=== PATIENT | female | born 1975 | race Caucasian/White ===

== ENCOUNTER → 2017-08-24 | Outpatient (REF) | payer OTHER ==
[2017-08-24 15:19] LABS: CHLAMYDIA DNA AMPLIFICATION NEGATIVE (NEGATIVE); GC DNA AMPLIFICATION NEGATIVE (NEGATIVE)
== END ==
LOC: M SFHCLERA 10:08
DX: R53.81 Other malaise (principal)

== ENCOUNTER → 2018-02-24 | Outpatient (CLI) | payer OTHER ==
--- NOTE | 2018-02-24 12:34 | REPMRS ---
Patient History The patient states she had a clinical breast exam in 2017. Family history of stomach cancer at age 47 in mother, ovarian cancer at age 90 in paternal grandmother. Digital Mammo Screening Bilat: February 24, 2018 - Exam #: [id number] Bilateral CC and MLO view(s) were taken. Technologist: Catherine Pisano, Technologist Prior study comparison: November 12, 2015, bilateral digital woman screen mammo, performed at [facility]. FINDINGS: The breast tissue is heterogeneously dense. This may lower the sensitivity of mammography. There is a moderate amount of heterogeneously dense fibroglandular tissue which is fairly symmetric. There is no interval development of dominant mass, architectural distortion, or clustered microcalcification typical of malignancy. There has been no change in the appearance of the mammogram from the prior studies. 3-D tomosynthesis shows no additional findings. Assessment: BI-RADS/ACR category 1 mammogram. Negative. Recommendation Routine screening mammogram of both breasts in 1 year (for women over age 40). This patient's Lifetime Breast Cancer RIsk is estimated at 9.2 %. This mammogram was interpreted with the aid of an FDA-approved computer-aided dectection system. Electronically Signed By: Toan Watters MD 02/24/18 [id number]
== END ==
LOC: M RAD 09:19
PROVIDERS: ATTEND Family Medicine
DX: Z12.31 Encounter for screening mammogram for malignant neoplasm of breast (principal)

== ENCOUNTER 2018-05-04 05:48 | Inpatient (IN) | payer OTHER ==
[2018-05-04] VITALS (8 sets, daily range): BP systolic 126–149; BP diastolic 77–93
[~2018-05-04] VITALS: Ht 157.5 cm; Wt 68.5 kg
[~2018-05-04 05:48] MED LIST: CELE20TA PO; IBUP1TAB7 PO
[2018-05-04] MEDS ORDERED: LIDOCAINE 1% MDV 20ML VIAL SQ PRN (06:00)
[2018-05-04 06:12] LABS: HEMATOCRIT 37.1 % (36.0-47.0); HEMOGLOBIN 11.9 g/dl (12.0-15.5); MEAN CORPUSCULAR HEMOGLOBIN 29.4 pg (27.0-33.0); MEAN CORPUSCULAR HGB CONC 32.1 g/dl (32.0-36.5); MEAN CORPUSCULAR VOLUME 91.6 fl (80.0-96.0); PLATELET COUNT, AUTOMATED 249 10^3/uL (150-450); RED BLOOD COUNT 4.05 10^6/uL (4.00-5.40); WHITE BLOOD COUNT 5.8 10^3/uL (4.0-10.0)
[2018-05-04 06:39] LABS: HCG, SERUM QUALITATIVE NEGATIVE (NEGATIVE)
[2018-05-04] MEDS ORDERED: LR 1,000 ML IV ONE (07:00)
[2018-05-04] MEDS ORDERED: BUPIVACAINE HCL 0.25% 30 ML VIAL As Ordered ONE (07:09)
[2018-05-04] MEDS ORDERED: HYDROmorphone HCL 2 MG/ML 1ML VIAL (J1170) As Ordered ONE (07:55)
[2018-05-04] MEDS ORDERED: dexameTHASONE 4 MG/ML 1ML VIAL (J1100) As Ordered ONE (07:55)
[2018-05-04] MEDS ORDERED: fentaNYL 100 MCG/2 ML INJECTION (J3010) As Ordered ONE (07:55)
[2018-05-04] MEDS ORDERED: LIDOCAINE 2% INJ 100 MG/5 ML SDV (FOR ANES.) As Ordered ONE (07:55)
[2018-05-04] MEDS ORDERED: PROPOFOL 200 MG/20 ML VIAL As Ordered ONE (07:56)
[2018-05-04] MEDS ORDERED: ROCURONIUM BROMIDE 50 MG/5 ML VIAL As Ordered ONE (07:56)
[2018-05-04] MEDS ORDERED: MIDAZOLAM INJ 2 MG/2 ML VIAL (J2250) As Ordered ONE (07:56)
[2018-05-04] MEDS ORDERED: ONDANSETRON 4MG/2ML VIAL (J2405) As Ordered ONE (07:56)
[2018-05-04] MEDS ORDERED: KETOROLAC 60 MG/2 ML VIAL (J1885) As Ordered ONE (09:23)
[2018-05-04] MEDS ORDERED: NEOSTIGMINE 10 MG/10 ML VIAL (J2710) As Ordered ONE (09:24)
[2018-05-04] MEDS ORDERED: GLYCOPYRROLATE INJ 0.2 MG/ML 2 ML VIAL As Ordered ONE (09:24)
[2018-05-04] MEDS ORDERED: DESFLURANE 240 ML INHALANT As Ordered ONE (09:30)
[2018-05-04] MEDS ORDERED: LIDOCAINE W/EPINEPHRINE 1% 20ML VIAL As Ordered ONE (09:45)
[2018-05-04] MEDS ORDERED: FLUORESCEIN 10% (100MG/ML) 5 ML VIAL As Ordered ONE (10:25)
[2018-05-04] MEDS ORDERED: ceFAZolin 2 GM/D5W 50 ML IV BAG (J0690 PER 500MG) As Ordered ONE (11:30)
[2018-05-04] MEDS ORDERED: LR 1,000 ML IV SCH ×2 (11:39→12:30)
[2018-05-04] MEDS ORDERED: ONDANSETRON 4MG/2ML VIAL (J2405) IV PRN ×2 (11:45→12:30)
[2018-05-04] MEDS ORDERED: PERCOCET 5MG/325MG TAB PO PRN ×3 (11:45→12:30)
[2018-05-04] MEDS ORDERED: MORPHINE 10 MG/ML 1ML VIAL (J2270) IV PRN (12:30)
[2018-05-04] MEDS ORDERED: fentaNYL 100 MCG/2 ML INJECTION (J3010) IV PRN (12:30)
--- NOTE | 2018-05-04 16:23 | IPNPDOC ---
Text Note Date of Service The patient was seen on 05/04/18. NOTE Post-op Day 0 Luz Maria is a 43yo F with severe dysmenorrhea s/p endometrial ablation in July 2016 who underwent uncomplicated LAVH, bilateral salpingectomy and cystoscopy on 05/04/18 for definitive treatment. She is doing well this afternoon. She has abdominal soreness but pain is overall well controlled. She has eaten without emesis/nausea, she is drinking water consistently. She has not yet ambulated. Has pineda catheter in place draining copious urine. No f/c/CP/SOB. Vitals wnl, afebrile General: WDWN, resting comfortably in bed Abdomen: soft, appropriately tender to palpation without rebound/guarding. 3 trocar sites intact with dermabond overlying, without erythema/drainage Extremities: SCDs on and functioning, no pain with palpation of calves Labs: pre-op H/H 11.9/37.1 Assessment: Luz Maria is a 43yo F with severe dysmenorrhea s/p endometrial ablation in July 2016 who underwent uncomplicated LAVH, bilateral salpingectomy and cystoscopy on 05/04/18 for definitive treatment, doing well on POD 0. Vitals wnl, benign exam. Hemodynamically stable with no e/o infection. Plan: -Routine post-op care -Vitals q4hr -Regular diet -Discontinue IVF when reliably tolerating PO intake well -CBC in the am -Keep pineda catheter in until 0700 tomorrow morning -K pad ordered for comfort -Encourage ambulation and use of IS -Anticipate discharge home tomorrow if meeting all milestones Dr. Bettina Rodriguez MD VS,Luna, I+O VSLuna, I+O Laboratory Tests 05/04/18 05:57 Red Blood Count 4.05, Mean Corpuscular Volume 91.6, Mean Corpuscular Hemoglobin 29.4, Mean Corpuscular Hemoglobin Concent 32.1, Red Cell Distribution Width 12.9 Vital Signs Date Time Temp Pulse Resp B/P (MAP) Pulse Ox O2 Delivery O2 Flow Rate FiO2 05/04/18 15:15 98.7 100 18 134/88 (103) 99 05/04/18 12:06 2 Bettina Rodriguez MD May 04, 2018 16:22
[2018-05-04] MEDS: KETOROLAC 30 MG/ML VIAL (J1885) IV PRN (18:20)
[2018-05-04] MEDS: DOCUSATE SODIUM 100 MG CAP PO SCH (19:59)
[2018-05-05] VITALS: BP 115/68
[2018-05-05] MEDS: KETOROLAC 30 MG/ML VIAL (J1885) IV PRN ×2 (00:21→08:25)
[2018-05-05 04:00] VITALS: BP 117/70
[2018-05-05 07:05] LABS: BASO % 0.2 % (0.0-1.0); EOS % 0.1 % (0.0-3.0); HEMATOCRIT 32.5 % (36.0-47.0); HEMOGLOBIN 10.5 g/dl (12.0-15.5); LYMPH # 2.1 10^3/uL (1.5-4.5); LYMPH % 19.6 % (24.0-44.0); MEAN CORPUSCULAR HEMOGLOBIN 29.2 pg (27.0-33.0); MEAN CORPUSCULAR HGB CONC 32.3 g/dl (32.0-36.5); MEAN CORPUSCULAR VOLUME 90.5 fl (80.0-96.0); MONO # 0.8 10^3/uL (0.0-0.8); NEUTROPHILS # 7.8 10^3/uL (1.8-7.7); NEUTROPHILS % 72.6 % (36.0-66.0); PLATELET COUNT, AUTOMATED 249 10^3/uL (150-450); RED BLOOD COUNT 3.59 10^6/uL (4.00-5.40); WHITE BLOOD COUNT 10.8 10^3/uL (4.0-10.0)
[2018-05-05 08:00] VITALS: BP 115/70
[2018-05-05] MEDS: DOCUSATE SODIUM 100 MG CAP PO SCH (08:24)
--- NOTE | 2018-05-05 08:45 | RO ---
DATE OF PROCEDURE: 05/04/2018 PREPROCEDURE DIAGNOSIS: In severe dysmenorrhea status post endometrial lesion. POSTPROCEDURE DIAGNOSIS: In severe dysmenorrhea status post endometrial lesion. POSTPROCEDURE DIAGNOSIS: SURGEON: Bettina Rodriguez MD PLASTICS FACTORY WORKER: Pascual Chairez MD CLINICAL SERVICE: Gynecology. INDICATIONS FOR OPERATION: Luz Maria is a 42-year-old G5, P 4-0-1-4 who has been experiencing severe dysmenorrhea after having an endometrial ablation by another physician in July 2016. The pain of her periods was extremely significant despite the fact that her bleeding was very minimal. She had an ultrasound that showed evidence of probable adenomyosis and after counseling desired definitive management with hysterectomy. MATERIAL FORWARDED TO LAB FOR EXAMINATION: Uterus, cervix and bilateral fallopian tubes. DESCRIPTION OF FINDINGS: The uterus was enlarged and boggy in appearance. The ovaries, fallopian tubes, liver edge all had normal appearance. There was hemostasis along the vaginal cuff and postoperative cystoscopy showed jets from both ostea. INFECTION CLASSIFICATION: II ESTIMATED BLOOD LOSS: 150 mL. IV FLUIDS: 1900 mL URINE OUTPUT: 200 mL OPERATION PERFORMED: Laparoscopic-assisted vaginal hysterectomy with bilateral salpingectomy and cystoscopy. DESCRIPTION OF OPERATION: The patient was taken to the operating room. Bilateral sequential compression device (SCD) were placed. General endotracheal anesthesia was utilized. She was prepped and draped in normal sterile fashion in low lithotomy position. Time-out was performed to confirm patient name, date of , procedure and indication, the team was in agreement. A De Leon catheter was placed. Seabrook speculum was placed in the vagina and the anterior lip of the cervix had a [id number] suture placed using #0 Vicryl suture. The VCare uterine manipulator was then introduced. The stitch was then tied down to the uterine manipulator and the bivalve speculum was removed from the vagina. A 5 mm incision was made in the infraumbilical fold beneath the subcutaneous tissue after anesthetizing with 0.25% Marcaine. Mery clamp was used to spread the subcutaneous tissue. Lower abdominal wall was manually grabbed and lifted up and an Optiview trocar was placed at a 90 degrees angle. The laparoscope was easily advanced through the port and intra-abdominal placement was confirmed. Observation below the point of entry revealed no injury. Continuous flow of carbon dioxide began to establish pneumoperitoneum at 15 mmHg pressure. We then placed two other ports, one in the right lower quadrant and one in the left lower quadrant and anesthetizing with 0.25% Marcaine first and then directly observing the placement of the trocars. We then did a full pelvic and abdominal survey beginning at the anterior cul-de-sac, which was normal in appearance. Posterior cul-de-sac revealed a couple stringy adhesions but no significant adhesions. The liver edge was normal in appearance. The gallbladder and appendix were not visualized on exam, but otherwise all in the other pelvic structures were normal in appearance aside from the uterus being enlarged and boggy in appearance. We did observe both of the ureters vermiculating. We began with the bilateral salpingectomy, first on the left side, excising the fallopian tube, maintaining good distance between the ovary and the fallopian tube with the LigaSure and then staying just underneath the fallopian tube up to the cornu of the uterus. We did this first on the left and then on the right. Both of the right all the fallopian tubes were lifted up through the trocars and passed off to be observed by pathology. We then began the hysterectomy by transecting the left broad ligament using the LigaSure. The utero-ovarian ligament on the head was also transected using LigaSure, and the anterior leaf of the broad ligament was opened and we attempted to skeletonize the uterine arteries. This was done with the LigaSure down to the level of the internal os. At that time, we also created the left sided portion of the bladder flap using the LigaSure and traction and then repeated that whole process on the right side. We noted hemostasis. Originally we intended to perform our colpotomy laparoscopically using the right angled hook; however, we were having difficulty palpating the cup of the VCare manipulator and it felt like we were just digging into the cervix without needing the cup so we decided at that point to move to perform the colpotomy vaginally and finish the procedure vaginally. There was adequate hemostasis noted along all the pedicle lines in the pelvis. We removed all the laparoscopic instruments at that point in the abdomen and pneumoperitoneum was released; however, other trocars remained in place. We then placed the patient in high lithotomy position, short weighted speculum was placed in the vagina with good visualization of the cervix. The cervix was grasped with two Allis clamps. Cervix was injected circumferentially with 1% lidocaine with epinephrine. Posterior cervix was grasped and entered sharply with curved Myers scissors after circumscribing the cervix using Bovie cautery. Entry was noted to be in the peritoneum and at that point we tagged the posterior peritoneum and vaginal cuff with 0 Vicryl. Uterosacral ligaments were incorporated in curved Franco clamps. They were transected and suture ligated using #0 Vicryl and tagged. The weighted speculum was replaced in the posterior cul-de-sac and the cardinal ligaments were clamped on both sides, transected and suture ligated with 0 Vicryl suture. Entry was made sharply in the anterior cul-de-sac using Metzenbaum scissors. Bladder was retracted away from the opening using a right-angle retractor. The uterine arteries and remaining broad ligaments were serially clamped with Franco clamps, transected and suture ligated with #0 Vicryl suture. Hemostasis of the uterine arteries was noted bilaterally. Specimen containing cervix and uterus was delivered through the vagina and passed off to go to pathology. The vaginal cuff was then closed using #0 Vicryl suture with a uterosacral plication. I used four [id number] at the most superior aspect of the vaginal cuff closure, taking great care to avoid the bladder and then starting just underneath the last [id number] I ran the rest of the vaginal cuff down inferiorly using 0 Vicryl. The vaginal cuff had hemostasis noted that point and all instruments removed from the vagina. Cystoscopy was completed in usual fashion after first administering fluorescein dye. Bilateral ureteral jets were visualized. There was a bubble noted at the dome of the bladder and the were no defects noted. No sutures within the bladder. Cystoscope was removed from the urethra and the De Leon catheter was replaced. Attention was then paid back to the abdomen after regloving where pneumoperitoneum was reestablished. Reevaluation of the abdomen and pelvis showed adequate hemostasis along all pedicle lines. We irrigated and then applied Ashvin along the pedicle lines. There was no bleeding whatsoever. At that point, the lateral ports were removed under direct visualization, followed by the umbilical port site. We reanesthetized each of the port sites with more 0.25 percent Marcaine for long-acting pain control and then the port sites were all reapproximated using #4-0 Monocryl, two sutures each for all of the ports, undermining the skin and then Dermabond was placed on top of the skin as a barrier. Hemostasis was noted for all those incisions. The patient was taken out of high lithotomy position and all counts were correct tines two. The patient was awakened from general anesthesia and taken to the recovery room in stable condition. She was redosed 2 grams of Ancef at the end of the procedure given that the procedure took more than 3 hours so that was a total of two doses that she received.
[2018-05-05 12:00] VITALS: BP 103/73
--- NOTE | 2018-05-05 12:39 | IPNPDOC ---
Text Note Date of Service The patient was seen on 05/05/18. NOTE Post-op Day 1 Luz Maria is a 43yo F with severe dysmenorrhea s/p endometrial ablation in July 2016 who underwent uncomplicated LAVH, bilateral salpingectomy and cystoscopy on 05/04/18 for definitive treatment. She is doing well on POD 1. Only complaint is right shoulder pain that started a couple hours ago. She was able to sleep last night, did not have shoulder pain then. Abdominal pain is minimal, well controlled with medications. She is eating without emesis/nausea, she is d rinking water consistently. Ambulating without dizziness/lightheadedness. De Leon was removed this morning and she is voiding spontaneously without problem since then. No f/c/CP/SOB. Vitals wnl, afebrile General: WDWN, resting comfortably in bed Abdomen: soft, appropriately tender to palpation without rebound/guarding. 3 trocar sites intact with dermabond overlying, without erythema/drainage Extremities: no edema BLE Labs: pre-op H/H 11.9/37.1 post-op H/H 10.5/32.5 Assessment: Luz Maria is a 43yo F with severe dysmenorrhea s/p endometrial ablation in July 2016 who underwent uncomplicated LAVH, bilateral salpingectomy and cystoscopy on 05/04/18 for definitive treatment, doing well on POD 1. Vitals wnl, benign exam. Hemodynamically stable with no e/o infection. Appropriate change in H/H. Having some right shoulder pain related to CO2 from laparoscopy procedure. Plan: -Discharge to home today -Follow up with Dr. Rodriguez at [facility] in 2 weeks as scheduled -Was [facility] meds [facility]: percocet, ibuprofen, colace -Return precautions discussed: fevers/chills, increasing abdominal pain, signs of incision infection like redness/pus, or anything else that concerns her -Complete vaginal rest and no heavy lifting Dr. Bettina Rodriguez MD VS,Luna, I+O VS, Luna, I+O Laboratory Tests 05/05/18 06:50 Red Blood Count 3.59 L, Mean Corpuscular Volume 90.5, Mean Corpuscular Hemoglobin 29.2, Mean Corpuscular Hemoglobin Concent 32.3, Red Cell Distribution Width 13.2, Neutrophils (%) (Auto) 72.6 H, Lymphocytes (%) (Auto) 19.6 L, Monocytes (%) (Auto) 7.0 H, Eosinophils (%) (Auto) 0.1, Basophils (%) (Auto) 0.2, Neutrophils # (Auto) 7.8 H, Lymphocytes # (Auto) 2.1, Monocytes # (Auto) 0.8, Eosinophils # (Auto) 0.0, Basophils # (Auto) 0.0 Vital Signs Date Time Temp Pulse Resp B/P (MAP) Pulse Ox O2 Delivery O2 Flow Rate FiO2 05/05/18 12:00 97.5 80 18 103/73 (83) 100 05/04/18 12:06 2 I&O- Last 24 Hours up to 6 AM 05/05/18 06:00 Intake Total 4455 ml Output Total 3420 ml Balance 1035 ml Bettina Rodriguez MD May 05, 2018 12:39
--- NOTE | 2018-05-05 12:42 | DS.PDOC ---
Discharge Summary General Date of Admission May 04, 2018 at 05:48 Date of Discharge May 05, 2018 Attending Physician: Bettina Rodriguez MD Discharge Summary PROCEDURES PERFORMED DURING STAY: laparoscopic assisted vaginal hysterectomy, bilateral salpingectomy, cystoscopy ADMITTING DIAGNOSES: 1. Severe dysmenorrhea post endometrial ablation DISCHARGE DIAGNOSES: 1. Severe dysmenorrhea post endometrial ablation COMPLICATIONS/CHIEF COMPLAINT: Severe Dysmenorrhea Post Ablation. HISTORY OF PRESENT ILLNESS/HOSPITAL COURSE: Luz Maria is a 43yo F with severe dysmenorrhea s/p endometrial ablation in July 2016 who underwent uncomplicated LAVH, bilateral salpingectomy and cystoscopy on 04/09 09/23 for definitive treatment, doing well on POD 1 and ready for discharge. Vitals wnl, benign exam. Hemodynamically stable with no e/o infection. Appropriate change in H/H. DISCHARGE MEDICATIONS: Please see below. ALLERGIES: Please see below. PHYSICAL EXAMINATION ON DISCHARGE: Vitals wnl, afebrile General: WDWN, resting comfortably in bed Abdomen: soft, appropriately tender to palpation without rebound/guarding. 3 trocar sites intact with dermabond overlying, without erythema/drainage Extremities: no edema BLE LABORATORY DATA: pre-op H/H 11.9/37.1 post-op H/H 10.5/32.5 DIET: regular DISPOSITION: home DISCHARGE PLAN/INSTRUCTIONS: -Discharge to home today -Follow up with Dr. Rodriguez at [facility] in 2 weeks as scheduled -Was given home meds from [facility] stock: percocet, ibuprofen, colace -Return precautions discussed: fevers/chills, increasing abdominal pain, signs of incision infection like redness/pus, or anything else that concerns her -Complete vaginal rest and no heavy lifting DISCHARGE CONDITION: Stable TIME SPENT ON DISCHARGE: Greater than [address] Bettina Rodriguez MD Vital Signs/I&Os Vital Signs Date Time Temp Pulse Resp B/P (MAP) Pulse Ox O2 Delivery O2 Flow Rate FiO2 05/05/18 12:00 97.5 80 18 103/73 (83) 100 05/04/18 12:06 2 I&O- Last 24 Hours up to 6 AM 05/05/18 06:00 Intake Total 4455 ml Output Total 3420 ml Balance 1035 ml Laboratory Data Labs 24H Laboratory Tests 2 05/05/18 06:50: Immature Granulocyte % (Auto) 0.5, White Blood Count 10.8H, Red Blood Count 3.59L, Hemoglobin 10.5L, Hematocrit 32.5L, Mean Corpuscular Volume 90.5, Mean Corpuscular Hemoglobin 29.2, Mean Corpuscular Hemoglobin Concent 32.3, Red Cell Distribution Width 13.2, Platelet Count 249, Neutrophils (%) (Auto) 72.6H, Lymphocytes (%) (Auto) 19.6L, Monocytes (%) (Auto) 7.0H, Eosinophils (%) (Auto) 0.1, Basophils (%) (Auto) 0.2, Neutrophils # (Auto) 7.8H, Lymphocytes # (Auto) 2.1, Monocytes # (Auto) 0.8, Eosinophils # (Auto) 0.0, Basophils # (Auto) 0.0, Nucleated Red Blood Cells % (auto) 0.0 CBC/BMP Laboratory Tests 05/05/18 06:50 Red Blood Count 3.59 L, Mean Corpuscular Volume 90.5, Mean Corpuscular Hemoglobin 29.2, Mean Corpuscular Hemoglobin Concent 32.3, Red Cell Distribution Width 13.2, Neutrophils (%) (Auto) 72.6 H, Lymphocytes (%) (Auto) 19.6 L, Monocytes (%) (Auto) 7.0 H, Eosinophils (%) (Auto) 0.1, Basophils (%) (Auto) 0.2, Neutrophils # (Auto) 7.8 H, Lymphocytes # (Auto) 2.1, Monocytes # (Auto) 0.8, Eosinophils # (Auto) 0.0, Basophils # (Auto) 0.0 Discharge Medications Scheduled Citalopram Hydrobromide (Celexa) 20 Mg Tab, 20 MG PO DAILY, (Reported) Scheduled PRN Ibuprofen (Ibuprofen) 800 Mg Tab, 800 MG PO DAILYPRN PRN for PAIN, (Reported) Allergies Coded Allergies: No Known Allergies (Unverified , 05/04/18) Bettina Rodriguez MD May 05, 2018 12:42
[2018-05-05] MEDS ORDERED: COLA100C5 PO (12:51)
[2018-05-05] MEDS ORDERED: OXYC1TAB23 PO (12:51)
== END 2018-05-05 14:15 | disposition home or self-care (01) | DRG 743 ==
LOC: M OR 05:48 → M PED 13:17
PROVIDERS: ADMIT Obstetrics & Gynecology; ATTEND Obstetrics & Gynecology
PROC: 0UT74ZZ Resection of Bilateral Fallopian Tubes, Percutaneous Endoscopic Approach (ICD-10-PCS; 2018-05-04)
PROC: 0UT97ZZ Resection of Uterus, Via Natural or Artificial Opening (ICD-10-PCS; principal; 2018-05-04 07:30)
PROC: 0UTC7ZZ Resection of Cervix, Via Natural or Artificial Opening (ICD-10-PCS; 2018-05-04 07:30)
DX: N94.6 Dysmenorrhea, unspecified (principal); Z79.899 Other long term (current) drug therapy